=== PATIENT | female | born 1960 | race Two or more races ===

== ENCOUNTER → 2019-02-15 | Day surgery (SDC) | payer OTHER | END | disposition home or self-care (01) | LOC: ADM 02-11 14:15 → AMB-ENDOS 08:54 | DX: D12.2 Benign neoplasm of ascending colon (principal); K64.8 Other hemorrhoids ==

== ENCOUNTER 2019-10-21 23:10 | Emergency (ER) | payer OTHER ==
[~2019-10-21] VITALS: Ht 160 cm; Wt 62.6 kg
[2019-10-21] MEDS ORDERED: LEXAPRO20 MG (23:28)
[2019-10-21] MEDS ORDERED: GLYCOTROL CAPS1 EACH (23:29)
[2019-10-21] MEDS ORDERED: [UNRECOGNIZED DRUG - REMARK] (23:29)
[2019-10-21] MEDS ORDERED: COLESTEROL (23:29)
[2019-10-22] MEDS ORDERED: LEVSIN/SL0.125 MG SL (06:11)
[2019-10-22] MEDS ORDERED: PEPCID40 MG PO (06:11)
[2019-10-22] MEDS ORDERED: INTESTINEX680 M1 PO (06:11)
== END 2019-10-22 06:27 | disposition home or self-care (01) ==
LOC: ER 23:10
DX: N28.1 Cyst of kidney, acquired (principal); R10.13 Epigastric pain

== ENCOUNTER 2020-03-20 07:09 | Day surgery (SDC) | payer OTHER ==
[~2020-03-20 07:09] MED LIST: COLESTEROL; GLYCOTROL CAPS1 EACH; INTESTINEX680 M1 PO; LEVSIN/SL0.125 MG SL; LEXAPRO20 MG; PEPCID40 MG PO; [UNRECOGNIZED DRUG - REMARK]
== END 2020-03-20 10:35 | disposition home or self-care (01) ==
LOC: AMB-ENDOS 07:09 → ADM 15:00 → AMB-ENDOS 15:00
PROVIDERS: ATTEND Surgery
DX: K62.89 Other specified diseases of anus and rectum (principal); K64.2 Third degree hemorrhoids; Z20.828 Contact with and (suspected) exposure to other viral communicable diseases

== ENCOUNTER → 2023-10-04 | Emergency (ER) | payer OTHER ==
[~2023-10-04] VITALS: Ht 160 cm; Wt 54.4 kg
[~2023-10-04] MED LIST changes: +ATORVASTATIN CA40 MG PO; +CALTRATE 600 +1 EAC1 PO; +COZAAR50 MG PO; +DEXAMETHASONE SODIUM PHOSPHATE 4 MG/ML VIAL IM STA; +HORIZANT300 MG PO; +LEXAPRO20 MG PO; +MAXIMUM D3325 MCG PO; +PROZAC20 MG PO; +SPIRIVA RESPIMAT4 GM IH; +VITAMIN B-121000 MC4; +VITAMIN K100 MCG PO
== END | disposition home or self-care (01) ==
LOC: ER 20:37
DX: M54.9 Dorsalgia, unspecified (principal); Z88.6 Allergy status to analgesic agent
CPT/HCPCS: 96372; 99282; J1100

== ENCOUNTER 2023-10-06 15:08 | Inpatient (IN) | payer OTHER ==
[~2023-10-06] VITALS: Ht 99.1 cm; Wt 49.9 kg
[~2023-10-06 15:08] MED LIST changes: -DEXAMETHASONE SODIUM PHOSPHATE 4 MG/ML VIAL IM STA
[2023-10-06 18:12] LABS: HEMATOCRIT 43.1 % (36.0-45.00); HEMOGLOBIN 14.9 g/dL (12.0-15.00); MEAN CELL VOLUME 95.3 fL (80.00-100.00); MEAN CORPUSCULAR HEMOGLOBIN 32.9 pg (27.00-32.0); MEAN CORPUSCULAR HGB CONC 34.6 g/dl (32.0-36.0); PLATELET COUNT 327 K/uL (150-450); RED BLOOD COUNT 4.52 M/uL (4.00-6.00); RED CELL DISTRIBUTION WIDTH 14.1 % (11.5-14.5)
[2023-10-06 18:27] LABS: CALCIUM 9.7 mg/dL (8.5-10.1); CREATININE SERUM 0.75 mg/dL (0.55-1.02); GFR 77.8; POTASSIUM 3.73 mEq/L (3.5-5.1)
[2023-10-06 18:40] LABS: URINE APPEARANCE Clear; URINE BILIRRUBIN Negative (NEGATIVE); URINE BLOOD Moderate; URINE COLOR Yellow; URINE GLUCOSE Negative (NEGATIVE); URINE LEUKOCYTE Negative; URINE NITRATE Negative; URINE PROTEIN Negative (NEGATIVE)
[2023-10-06 18:41] LABS: URINE BACTERIA 83.1 uL (0.0-1933); URINE EPITHELIAL CELLS 10.1 uL (0.0-38.8); URINE RBC 63.9 uL (0.0-20.8)
[2023-10-06 18:52] LABS: URINE CRYSTALS MANY /HPF
[2023-10-06] MEDS ORDERED: PIPERACILLIN/TAZOBACTAM SODIUM 3.375 GM VIAL IV ONE (22:30)
[2023-10-06] MEDS ORDERED: 0.9 % SODIUM CHLORIDE 500 ML IV SCH (22:30)
[2023-10-07] MEDS ORDERED: 0.9 % SODIUM CHLORIDE 1,000 ML IV SCH (00:15)
[2023-10-07] MEDS ORDERED: HYOSCYAMINE SULFATE 0.125 MG TAB.SUBL PO ONE (00:30)
[2023-10-07] MEDS ORDERED: ENALAPRILAT DIHYDRATE 1.25 MG/ML VIAL IV PRN (00:30)
[2023-10-07] MEDS ORDERED: ACETAMINOPHEN 500 MG GEL..CAP PO PRN (00:30)
[2023-10-07] MEDS ORDERED: MEPERIDINE HCL/PF 25 MG/ML VIAL IM PRN (00:30)
[2023-10-07] MEDS ORDERED: ONDANSETRON HCL 4 MG in 0.9 % SODIUM CHLORIDE 50 ML IV PRN (00:30)
[2023-10-07 02:03] LABS: LIPASE 37 U/L (13-75)
[2023-10-07 02:04] LABS: INR 0.97; PROTHROMBIN TIME 10.2 SECONDS (9.0-11.5)
[2023-10-07 02:15] LABS: C-REACTIVE PROTEIN < 0.29 MG/DL (0.00-0.29)
[2023-10-07] MEDS ORDERED: PIPERACILLIN/TAZOBACTAM SODIUM 3.375 GM in DEXTROSE 5 % IN WATER 100 ML IV SCH (06:00)
[2023-10-07] MEDS ORDERED: FAMOTIDINE/PF 20 MG in 0.9 % SODIUM CHLORIDE 8 ML IV PUSH SCH (09:00)
[2023-10-09 06:18] LABS: HEMATOCRIT 36.1 % (36.0-45.00); HEMOGLOBIN 12.7 g/dL (12.0-15.00); MEAN CELL VOLUME 93.3 fL (80.00-100.00); MEAN CORPUSCULAR HEMOGLOBIN 32.9 pg (27.00-32.0); MEAN CORPUSCULAR HGB CONC 35.2 g/dl (32.0-36.0); PLATELET COUNT 263 K/uL (150-450); RED BLOOD COUNT 3.87 M/uL (4.00-6.00); RED CELL DISTRIBUTION WIDTH 13.4 % (11.5-14.5)
[2023-10-09 06:41] LABS: ALBUMIN 2.9 gm/dL (3.4-5.0); BILIRUBIN TOTAL 1.16 mg/dL (0.3-1.2); CALCIUM 7.4 mg/dL (8.5-10.1); CREATININE SERUM 0.55 mg/dL (0.55-1.02); GFR 111.28; GLOBULINA 2.9 G/DL (2.4-3.5); POTASSIUM 3.39 mEq/L (3.5-5.1); TOTAL PROTEIN 5.8 gm/dL (6.4-8.2)
== END 2023-10-09 19:10 | disposition home or self-care (01) | DRG 392 ==
LOC: ER 15:08 → MEDI 10-07 00:38
PROVIDERS: General Practice; Internal Medicine Infectious Disease; Nurse Practitioner Family; ADMIT Specialist; ATTEND Specialist
PROC: BW21YZZ Computerized Tomography (CT Scan) of Abdomen and Pelvis using Other Contrast (ICD-10-PCS; principal; 2023-10-06)
DX: K52.9 Noninfective gastroenteritis and colitis, unspecified (principal); E86.0 Dehydration; M51.36 Other intervertebral disc degeneration, lumbar region; K62.89 Other specified diseases of anus and rectum; R19.8 Other specified symptoms and signs involving the digestive system and abdomen

== ENCOUNTER 2023-10-22 03:02 | Emergency (ER) | payer OTHER ==
[~2023-10-22] VITALS: Ht 162.6 cm; Wt 54.4 kg
[2023-10-22] MEDS ORDERED: METHYLPREDNISOLONE SOD SUCC 125 MG VIAL IM STA (03:49)
[2023-10-22] MEDS ORDERED: MEPERIDINE HCL/PF 25 MG/ML VIAL IM STA (03:49)
[2023-10-22] MEDS ORDERED: HYDROCORTISONE ACETATE 25 MG/SUPP.RECT SUPP.RECT RECTAL STA (03:50)
[2023-10-22 04:19] LABS: HEMATOCRIT 38.5 % (36.0-45.00); HEMOGLOBIN 13.3 g/dL (12.0-15.00); MEAN CORPUSCULAR HEMOGLOBIN 32.4 pg (27.00-32.0); MEAN CORPUSCULAR HGB CONC 34.4 g/dl (32.0-36.0); PLATELET COUNT 312 K/uL (150-450); RED CELL DISTRIBUTION WIDTH 13.4 % (11.5-14.5)
[2023-10-22] MEDS ORDERED: ANUSOL-HC30 G2 TOP (06:31)
[2023-10-22] MEDS ORDERED: ANUSOL-HC25 MG RECTAL (06:31)
== END 2023-10-22 06:35 ==
LOC: ER 03:02
PROVIDERS: General Practice
DX: K64.8 Other hemorrhoids (principal); K62.89 Other specified diseases of anus and rectum; I10 Essential (primary) hypertension; Z88.6 Allergy status to analgesic agent; Z88.8 Allergy status to other drugs, medicaments and biological substances
CPT/HCPCS: 36415; 96372; 99283; J2930; J3490

== ENCOUNTER → 2024-09-08 13:03 | Outpatient (CLI) | payer OTHER ==
[~2024-09-08 13:03] MED LIST changes: +ANUSOL-HC25 MG RECTAL; +ANUSOL-HC30 G2 TOP
[2024-09-08 14:44] LABS: CALCIUM 9.6 mg/dL (8.5-10.1); CREATININE SERUM 0.71 mg/dL (0.55-1.02); GFR 82.62; PHOSPHOROUS 3.4 mg/dL (2.5-4.9); POTASSIUM 4.77 mEq/L (3.5-5.1)
== END | disposition home or self-care (01) ==
LOC: LAB 13:03
PROVIDERS: ATTEND Surgery
DX: K64.4 Residual hemorrhoidal skin tags (principal); K62.89 Other specified diseases of anus and rectum; K62.5 Hemorrhage of anus and rectum; D12.2 Benign neoplasm of ascending colon; R59.0 Localized enlarged lymph nodes; D37.4 Neoplasm of uncertain behavior of colon

== ENCOUNTER 2024-09-09 07:37 | Outpatient (CLI) | payer OTHER | END 2024-09-09 09:07 | disposition home or self-care (01) | LOC: TOM 07:37 | PROVIDERS: ATTEND Surgery | DX: K64.4 Residual hemorrhoidal skin tags (principal); K62.89 Other specified diseases of anus and rectum; K62.5 Hemorrhage of anus and rectum; D12.2 Benign neoplasm of ascending colon; R59.0 Localized enlarged lymph nodes; D37.4 Neoplasm of uncertain behavior of colon | CPT/HCPCS: 74177; Q9965 ==

== ENCOUNTER → 2025-03-19 | Emergency (ER) | payer OTHER ==
[~2025-03-19] VITALS: Ht 160 cm; Wt 56.7 kg
[~2025-03-19] MED LIST changes: +PAXLOVID 300-11 EAC1 PO; +TUSNEL LIQUID178 ML PO
[2025-03-19 23:12] LABS: BASO % 0.5 % (0.1-1.2); EOS # 0.06 (0.04-0.54); EOS % 0.5 % (0.7-7.0); LYMPH # 2.43 (1.18-3.74); LYMPH % 21.9 % (19.3-53.1); MEAN PLATELET VOLUME 9.60 fl (9.4-12.4); MONO # 1.21 (0.24-0.82); MONO % 10.9 % (4.7-12.5); NEUT # 7.32 (1.56-6.13); NEUT % 66.0 % (34.0-71.1); RED CELL DISTRIBUTION WIDTH 13.1 % (11.6-14.4)
[2025-03-19 23:59] LABS: COVID-19 AG POSITIVE (NEGATIVE)
== END | disposition home or self-care (01) ==
LOC: ER 21:28
PROVIDERS: Emergency Medicine
DX: U07.1 COVID-19 (principal); R50.9 Fever, unspecified; Z88.6 Allergy status to analgesic agent

== ENCOUNTER 2025-05-31 09:35 | Outpatient (CLI) | payer OTHER | END 2025-05-31 09:39 | disposition home or self-care (01) | LOC: TOM 09:35 | PROVIDERS: ATTEND Surgery | DX: K64.4 Residual hemorrhoidal skin tags (principal); K62.89 Other specified diseases of anus and rectum; K62.5 Hemorrhage of anus and rectum; D12.2 Benign neoplasm of ascending colon; R59.0 Localized enlarged lymph nodes; D37.4 Neoplasm of uncertain behavior of colon; K56.50 Intestinal adhesions [bands], unspecified as to partial versus complete obstruction ==